=== PATIENT | male | born 1955 | race Caucasian/White ===

== ENCOUNTER → 2024-03-22 11:09 | Outpatient (REF) | payer MEDICARE, BC, SELFPAY | LOC: HWRCS 11:09 | PROVIDERS: ATTENDING PHYSICIAN Internal Medicine Cardiovascular Disease; FAMILY PHYSICIAN Internal Medicine | DX: R03.0 Elevated blood-pressure reading, without diagnosis of hypertension (principal); J45.909 Unspecified asthma, uncomplicated; R00.2 Palpitations; G47.33 Obstructive sleep apnea (adult) (pediatric); E11.9 Type 2 diabetes mellitus without complications; R01.1 Cardiac murmur, unspecified | CPT/HCPCS: 93306 ==

== ENCOUNTER → 2025-07-26 11:01 | Outpatient (REF) | payer MEDICARE, BC, SELFPAY | LOC: RAD 11:01 | PROVIDERS: ATTENDING PHYSICIAN Internal Medicine Cardiovascular Disease; FAMILY PHYSICIAN Internal Medicine; REFERRING PHYSICIAN Hospitalist | DX: M79.606 Pain in leg, unspecified (principal); Z87.891 Personal history of nicotine dependence; R91.1 Solitary pulmonary nodule; Z12.2 Encounter for screening for malignant neoplasm of respiratory organs | CPT/HCPCS: 71271; 93925 ==